=== PATIENT | male | born 1940 | race Two or more races ===

== ENCOUNTER 2022-06-19 10:16 | Inpatient (IN) | payer OTHER ==
[~2022-06-19] VITALS: Ht 167.6 cm; Wt 0.5 kg
[2022-06-19] MEDS ORDERED: ELIQUIS5 MG PO (10:41)
[2022-06-19] MEDS ORDERED: VITAMIN C100 MG (10:42)
[2022-06-19] MEDS ORDERED: LOSARTAN POTASS50 MG PO (10:42)
[2022-06-19] MEDS ORDERED: AMIODARONE HCL200 MG PO (10:42)
[2022-06-19] MEDS ORDERED: FENOFIBRATE145 MG PO (10:42)
[2022-07-01] MEDS ORDERED: INTESTINEX680 M1 PO (11:02)
== END 2022-07-01 15:10 | disposition home or self-care (01) | DRG 391 ==
LOC: ER 10:16 → SEC-K 14:08 → SURH 14:08
PROVIDERS: ADMIT Surgery; ATTEND Surgery
PROC: 02HV33Z Insertion of Infusion Device into Superior Vena Cava, Percutaneous Approach (ICD-10-PCS; 2022-06-20)
PROC: 4A12X4Z Monitoring of Cardiac Electrical Activity, External Approach (ICD-10-PCS; 2022-06-20)
PROC: BW21YZZ Computerized Tomography (CT Scan) of Abdomen and Pelvis using Other Contrast (ICD-10-PCS; 2022-06-21)
PROC: B24BZZZ Ultrasonography of Heart with Aorta (ICD-10-PCS; 2022-06-22)
PROC: 0W9G3ZZ Drainage of Peritoneal Cavity, Percutaneous Approach (ICD-10-PCS; principal; 2022-06-24)
PROC: BW21ZZZ Computerized Tomography (CT Scan) of Abdomen and Pelvis (ICD-10-PCS; 2022-06-28)
DX: K57.20 Diverticulitis of large intestine with perforation and abscess without bleeding (principal); K65.1 Peritoneal abscess; Z16.12 Extended spectrum beta lactamase (ESBL) resistance; E86.0 Dehydration; K80.20 Calculus of gallbladder without cholecystitis without obstruction; I10 Essential (primary) hypertension; D64.9 Anemia, unspecified; I48.0 Paroxysmal atrial fibrillation; L98.8 Other specified disorders of the skin and subcutaneous tissue; I34.0 Nonrheumatic mitral (valve) insufficiency; I07.1 Rheumatic tricuspid insufficiency; E83.42 Hypomagnesemia; E03.9 Hypothyroidism, unspecified; B96.20 Unspecified Escherichia coli [E. coli] as the cause of diseases classified elsewhere; B96.89 Other specified bacterial agents as the cause of diseases classified elsewhere; Z20.822 Contact with and (suspected) exposure to COVID-19

== ENCOUNTER 2022-08-05 11:15 | Inpatient (IN) | payer OTHER ==
[~2022-08-05] VITALS: Ht 165.1 cm; Wt 83.0 kg
[~2022-08-05 11:15] MED LIST: AMIODARONE HCL200 MG PO; ELIQUIS5 MG PO; FENOFIBRATE145 MG PO; INTESTINEX680 M1 PO; LOSARTAN POTASS50 MG PO; VITAMIN C100 MG
[2022-08-05] MEDS ORDERED: COZAA PO (13:50)
[2022-08-05] MEDS ORDERED: LEVOTHYROXINE25 MCG PO (13:51)
[2022-08-05] MEDS ORDERED: TRICOR145 MG PO (13:51)
[2022-08-05] MEDS ORDERED: NEURI PO (13:52)
[2022-08-05] MEDS ORDERED: CENTRUM ADULT120 MCG PO (13:53)
[2022-08-12] MEDS ORDERED: [UNRECOGNIZED DRUG - OTHER] (09:37)
[2022-08-12] MEDS ORDERED: ELIQUIS5 MG (09:37)
[2022-08-12] MEDS ORDERED: IRBESARTAN150 MG (09:38)
[2022-08-12] MEDS ORDERED: GABAPENTIN600 MG (09:39)
[2022-08-16] MEDS ORDERED: INTESTINEX680 M1 PO (10:15)
[2022-08-16] MEDS ORDERED: BACTRIM DS TAB1 EACH PO (10:15)
[2022-08-16] MEDS ORDERED: HYOSCYAMINE0.125 M1 SL (10:15)
== END 2022-08-16 12:12 | disposition home or self-care (01) | DRG 329 ==
LOC: SURH 08-12 06:00 → O/R 08-12 06:00 → SURG 08-12 11:15 → SURH 08-12 15:04
PROVIDERS: ADMIT Surgery; ATTEND Surgery
PROC: 0DBP4ZZ Excision of Rectum, Percutaneous Endoscopic Approach (ICD-10-PCS; 2022-08-12)
PROC: 0T7D8DZ Dilation of Urethra with Intraluminal Device, Via Natural or Artificial Opening Endoscopic (ICD-10-PCS; 2022-08-12)
PROC: 4A12X4Z Monitoring of Cardiac Electrical Activity, External Approach (ICD-10-PCS; 2022-08-12)
PROC: 0DJD8ZZ Inspection of Lower Intestinal Tract, Via Natural or Artificial Opening Endoscopic (ICD-10-PCS; 2022-08-12)
PROC: 0DTN4ZZ Resection of Sigmoid Colon, Percutaneous Endoscopic Approach (ICD-10-PCS; principal; 2022-08-12 15:00)
DX: K57.20 Diverticulitis of large intestine with perforation and abscess without bleeding (principal); K65.1 Peritoneal abscess; Z16.12 Extended spectrum beta lactamase (ESBL) resistance; E03.9 Hypothyroidism, unspecified; I48.0 Paroxysmal atrial fibrillation; B96.20 Unspecified Escherichia coli [E. coli] as the cause of diseases classified elsewhere; B96.89 Other specified bacterial agents as the cause of diseases classified elsewhere; I11.9 Hypertensive heart disease without heart failure

== ENCOUNTER 2022-08-11 06:48 | Outpatient (CLI) | payer OTHER ==
[~2022-08-11 06:48] MED LIST changes: +CENTRUM ADULT120 MCG PO; +COZAA PO; +LEVOTHYROXINE25 MCG PO; +NEURI PO; +TRICOR145 MG PO
[2022-08-12] MEDS ORDERED: ELIQUIS5 MG (09:37)
[2022-08-12] MEDS ORDERED: [UNRECOGNIZED DRUG - OTHER] (09:37)
[2022-08-12] MEDS ORDERED: IRBESARTAN150 MG (09:38)
[2022-08-12] MEDS ORDERED: GABAPENTIN600 MG (09:39)
== END 2022-08-11 06:53 | disposition home or self-care (01) ==
LOC: LAB 06:48
PROVIDERS: ATTEND Internal Medicine Geriatric Medicine
DX: E03.9 Hypothyroidism, unspecified (principal)